=== PATIENT | male | born 1950 | race Caucasian/White ===

== ENCOUNTER 2024-07-14 11:05 | Emergency (ER) | payer OTHER ==
[2024-07-14] MEDS ORDERED: HYDROcodone/Acetaminophen 5/325 mg Tablet ONE (11:48)
[2024-07-14] MEDS ORDERED: Morphine 4 MG/ML VIAL ONE ×2 (12:54→14:54)
[2024-07-14] MEDS ORDERED: Ondansetron PF 4 MG/2 ML Vial ONE ×2 (12:54→14:54)
[2024-07-14 13:28] LABS: INR-International Normal Ratio 1.3; PTT 31.5 sec (22.0-33.0); Prothrombin Time 14.2 sec (9.5-12.1)
[2024-07-14 13:37] LABS: #Basophils 0.03 10x3/uL (0.0-0.2); #Eosinphils 0.11 10x3/uL (0.0-0.5); #Monocytes 0.48 10x3/uL (0.0-1.1); #Neutrophils 3.89 10x3/uL (1.5-8.4); %Basophils 0.5 % (0.0-2.0); %Eosinophils 1.7 % (0.0-6.0); %Lymphocytes 29.7 % (18.0-47.0); %Monocytes 7.4 % (0.0-10.0); %Neutrophils 60.2 % (40.0-75.0); Hematocrit 41.2 % (38.8-50.0); Mean Corpuscular Hemoglobin 31.8 pg (27.0-33.0); Mean Corpuscular Volume 93.6 fL (81.2-95.1); Mean Platelet Volume 9.3 fL (7.4-10.4); Platelet Count 149 10x3/uL (150-450); RBC Distribution Width 13.1 % (11.5-14.5); White Blood Cell (WBC) Count 6.5 10x3/uL (3.5-10.5)
[2024-07-14 13:47] LABS: ALT (SGPT) 23 U/L (8-55); AST (SGOT) 27 U/L (5-34); Alkaline Phosphatase 58 U/L (40-110); Anion Gap 13 mmol/L (10-20); BUN (Urea Nitrogen) 13 mg/dL (8.4-25.7); Bilirubin, Total 0.9 mg/dL (0.2-1.2); Calc. Creatinine Clearance 0 mL/min (70-130); Calcium 9.3 mg/dL (7.8-10.44); Carbon Dioxide 25 mmol/L (23-31); Chloride 104 mmol/L (98-107); Estimated GFR 73; Globulin 3.5 g/dL (2.4-3.5); Glucose 141 mg/dL (83-110); Potassium 4.6 mmol/L (3.5-5.1); Protein, Total 7.5 g/dL (5.8-8.1); Sodium 137 mmol/L (136-145)
== END 2024-07-14 16:35 | disposition short-term general hospital (02) ==
LOC: CSHERS 11:05
DX: S72.001A Fracture of unspecified part of neck of right femur, initial encounter for closed fracture (principal); I11.0 Hypertensive heart disease with heart failure; I50.9 Heart failure, unspecified; E11.9 Type 2 diabetes mellitus without complications; I48.91 Unspecified atrial fibrillation; Z79.4 Long term (current) use of insulin; Z79.82 Long term (current) use of aspirin; W19.XXXA Unspecified fall, initial encounter
CPT/HCPCS: 36415; 72192; 80053; 85025; 85610; 85730; 86850; 86900; 86901; 96374; 96375; 96376; G0390; J2272; J2405

== ENCOUNTER 2024-12-11 09:14 | Emergency (ER) | payer MEDICARE ==
[2024-12-11 09:53] LABS: #Basophils 0.03 10x3/uL (0.0-0.2); #Eosinophils 0.19 10x3/uL (0.0-0.5); #Monocytes 0.53 10x3/uL (0.0-1.1); #Neutrophils 2.38 10x3/uL (1.5-8.4); %Basophils 0.5 % (0.0-2.0); %Eosinophils 3.3 % (0.0-6.0); %Lymphocytes 45.5 % (18.0-47.0); %Monocytes 9.2 % (0.0-10.0); %Neutrophils 41.3 % (40.0-75.0); Hematocrit 41.7 % (38.8-50.0); Hemoglobin 13.9 g/dL (13.5-17.5); Mean Corpuscular HGB CONC 33.3 g/dL (32.0-36.0); Mean Corpuscular Hemoglobin 33.1 pg (27.0-33.0); Mean Corpuscular Volume 99.3 fL (81.2-95.1); Mean Platelet Volume 9.7 fL (7.4-10.4); Platelet Count 146 10x3/uL (150-450); RBC Distribution Width 15.1 % (11.5-14.5); White Blood Cell (WBC) Count 5.76 10x3/uL (3.5-10.5)
[2024-12-11 10:13] LABS: ALT (SGPT) 53 U/L (8-55); AST (SGOT) 49 U/L (5-34); Albumin 3.6 g/dL (3.4-4.8); Alkaline Phosphatase 105 U/L (40-110); Anion Gap 13 mmol/L (10-20); BUN (Urea Nitrogen) 19 mg/dL (8.4-25.7); Bilirubin, Total 0.8 mg/dL (0.2-1.2); Calc. Creatinine Clearance 0 mL/min (70-130); Calcium 8.7 mg/dL (7.8-10.44); Carbon Dioxide 23 mmol/L (23-31); Chloride 109 mmol/L (98-107); Estimated GFR 89; Globulin 3.4 g/dL (2.4-3.5); Glucose 86 mg/dL (83-110); Potassium 4.2 mmol/L (3.5-5.1); Sodium 141 mmol/L (136-145)
[2024-12-11 10:19] LABS: Troponin I Less than 0.010 ng/mL (< 0.028)
== END 2024-12-11 13:04 | disposition home or self-care (01) ==
LOC: CSHERS 09:14
DX: R05.9 Cough, unspecified (principal); I11.0 Hypertensive heart disease with heart failure; I50.9 Heart failure, unspecified; E11.9 Type 2 diabetes mellitus without complications; I48.91 Unspecified atrial fibrillation; E78.5 Hyperlipidemia, unspecified; Z79.01 Long term (current) use of anticoagulants; Z79.4 Long term (current) use of insulin; Z79.899 Other long term (current) drug therapy
CPT/HCPCS: 71045; 80053; 83880; 84484; 85025; 93005